=== PATIENT | female | born 1940 | race Caucasian/White ===

== ENCOUNTER 2025-03-04 14:13 | Emergency (ER) | payer MEDICARE | END 2025-03-04 14:52 | disposition home or self-care (01) | LOC: MADERS 14:13 | DX: K94.23 Gastrostomy malfunction (principal) | CPT/HCPCS: 99282 ==

== ENCOUNTER 2025-03-27 13:43 | Outpatient (CLI) | payer MEDICARE | END 2025-03-27 13:44 | disposition home or self-care (01) | LOC: MADRAD 13:43 | PROVIDERS: ATTEND Physician Assistant Medical | DX: K21.9 Gastro-esophageal reflux disease without esophagitis (principal); R10.13 Epigastric pain; R63.4 Abnormal weight loss; R11.2 Nausea with vomiting, unspecified; K31.89 Other diseases of stomach and duodenum; K59.00 Constipation, unspecified; K94.23 Gastrostomy malfunction | CPT/HCPCS: 74018 ==